=== PATIENT | female | born 1980 | race Caucasian/White ===

== ENCOUNTER 2021-10-23 13:57 | Emergency (ER) | payer MEDICAID, SELFPAY ==
[~2021-10-23] VITALS: Ht 172.7 cm; Wt 68.0 kg
[2021-10-23 14:07] VITALS: BP_SYST 122
--- NOTE | 2021-10-23 14:07 | NUR ---
Placed in room [address] monitor, blood pressure machine and pulse oximeter. To gown for exam. Side rails up. Report given to FRANCISCO J KOVACS.
--- NOTE | 2021-10-23 14:40 | NUR ---
40 years old female presents to er for medical evaluation alert, oriented x4 awaiting for Md evaluation no sob no cp, vital stable.
[2021-10-23] MEDS ORDERED: NACL 0.9% 1,000 ML IV ONE (14:45)
[2021-10-23 15:10] LABS: BASOPHILS % (AUTO) 0.6 % (0.0-2.0); EOSINOPHILS % (AUTO) 0.4 % (0.0-4.0); HEMATOCRIT 38.2 % (36-48); HEMOGLOBIN 13.3 g/dL (12.0-16.0); LYMPHOCYTES # (AUTO) 0.4 K/uL (1.0-5.5); LYMPHOCYTES % (AUTO) 16.6 % (20.5-51.5); MEAN CORPUSCULAR HEMOGLOBIN 30 pg (27-31); MEAN CORPUSCULAR HGB CONC 35 % (32-36); MEAN CORPUSCULAR VOLUME 85 fL (79.0-98.0); MONOCYTES # (AUTO) 0.4 K/uL (0.0-1.0); MONOCYTES % (AUTO) 18.6 % (1.7-9.3); NEUTROPHILS # (AUTO) 1.5 K/uL (1.8-7.7); NEUTROPHILS % (AUTO) 63.8 % (40.0-70.0); PLATELET COUNT (AUTO) 115 K/uL (130-430); RED BLOOD CELL COUNT(AUTO) 4.48 MIL/uL (4.2-6.2); RED CELL DISTRIBUTION WIDTH 11.7 % (9.0-15.0); WHITE BLOOD COUNT (AUTO) 2.3 K/uL (4.8-10.8)
[2021-10-23 15:19] LABS: CALCIUM 9.1 mg/dL (8.4-11.0); CREATININE 0.88 mg/dL (0.55-1.30)
--- NOTE | 2021-10-23 15:20 | NUR ---
# 20 gauge angiocath placed to . Use of asceptic technique. Opsite placed over site. Blood return noted. Blood for lab drawn from site. Flushed with 10 cc of normal saline. No evidence of infiltration noted. Patient tolerated well.
[2021-10-23 15:29] LABS: ALBUMIN 3.2 g/dL (3.4-4.8); TOTAL BILIRUBIN 0.1 mg/dL (0.0-1.0)
[2021-10-23 16:05] LABS: BILIRUBIN,URINE NEGATIVE (NEGATIVE); CLARITY/URINE CLEAR (CLEAR); COLOR,URINE YELLOW (YELLOW); GLUCOSE,URINE NEGATIVE (NEGATIVE); KETONES,URINE NEGATIVE (NEGATIVE); LEUKOCYTE ESTERASE ,URINE NEGATIVE (NEGATIVE); NITRITE, URINE NEGATIVE (NEGATIVE); PH,URINE 6.5 (5.0-8.0); PROTEIN URINE NEGATIVE (NEGATIVE); UROBILINOGEN,URINE 0.2 (0.2-1.0)
[2021-10-23 16:11] LABS: BLOOD, URINE TRACE (NEGATIVE)
[2021-10-23 16:18] LABS: BACTERIA,URINE RARE /HPF (None Seen); RBC,URINE 0-3 /HPF (0-3); WBC,URINE 0-3 /HPF (0-3)
[2021-10-23 16:19] LABS: MUCUS,URINE None Seen /LPF (None Seen)
[2021-10-23 16:36] VITALS: BP_SYST 110
--- NOTE | 2021-10-23 16:40 | NUR ---
condition stable d/c home with instructions after care reviewed understood.
--- NOTE | 2021-10-23 17:10 | NUR ---
Patient given written and verbal discharge instructions and verbalizes understanding. ER MD discussed with patient the results and treatment provided. Patient in stable condition. ID arm band removed. IV catheter removed intact and dressing applied, no active bleeding. Rx of given. Patient educated on pain management and to follow up with PMD. Pain Scale . Opportunity for questions provided and answered. Medication side effect fact sheet provided.
== END 2021-10-23 17:10 | disposition home or self-care (01) ==
LOC: SED 13:57
DX: B34.9 Viral infection, unspecified (principal); M79.10 Myalgia, unspecified site; R53.83 Other fatigue; R50.9 Fever, unspecified; E86.0 Dehydration
CPT/HCPCS: 36415; 71045; 80053; 81000; 83605; 85025; 87040; 87426; 93005; 96360; 99285; J7030